=== PATIENT | male | born 1975 | race Caucasian/White ===

== ENCOUNTER 2019-07-07 16:15 | Outpatient (CLI) | payer BC, SELFPAY ==
--- NOTE | ~2019-07-07 | XR_ITS ---
EXAMINATION: XR lumbar spine 2-3V DATE: 07/07/2019 16:43 INDICATION: Low back pain and left-sided sciatic pain TECHNIQUE: Anteroposterior and lateral views of the lumbar spine, and cone-down lateral view of the l umbosacral junction were obtained. COMPARISON: None. FINDINGS: Mild straightening of the normal lumbar lordosis. No spondylolisthesis. Vertebral body and disc heigh ts are normal. No significant appreciable facet osteoarthritis. Visualized portions of the sacrum and bilateral sacroiliac joints are unremarkable. Visualized base of the lungs are clear with no pleural effusion. Moderate amount of colonic stool. IMPRESSION: 1. Straightening of the normal lumbar lordosis with no appreciable spondylosis. Reviewed, dictated and finalized at location A. S OR SURVEYS INTERVIEWER
--- NOTE | ~2019-07-07 | XR_ITS ---
EXAMINATION: XR hip LT min 2V DATE: 07/07/2019 16:42 INDICATION: Low back pain and left-sided sciatic pain. TECHNIQUE: Anteroposterior and frog-leg lateral views of the left hip were obtained. COMPARISON: None. FINDINGS: Alignment is normal. No fracture or suspected avascular necrosis. Left hip joint space appears relati vely preserved. Soft tissues are unremarkable. IMPRESSION: 1. Negative left hip radiographs. Reviewed, dictated and finalized at location A. 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
== END 2019-07-07 16:16 | disposition home or self-care (01) ==
LOC: CHSIMG 16:23
PROVIDERS: PCP Family Medicine; Visit Provider Family Medicine
DX: M54.32 Sciatica, left side (principal)
CPT/HCPCS: 72100; 73502

== ENCOUNTER 2023-02-15 19:07 | Emergency (ER) | payer OTHER, SELFPAY ==
[2023-02-15 19:10] VITALS: BP 180/110; PULSE 100; RESP 20; TEMP 36.6; O2SAT 95
--- NOTE | 2023-02-15 19:12 | ED.ANIMALBIT ---
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 was trying around up the dog for quarantine as it bit another person) Associated symptoms: none Related Data Patient tetanus UTD: Yes ( 3 years ago) Allergies Allergy/AdvReac Type Severity Reaction Status Date / Time No Known Allergies Allergy Verified 02/15/23 19:11 Review of Systems Review of Systems: All systems reviewed & are unremarkable except as noted in HPI and below Constitutional: Constitutional: Reports no additional constitutional complaints Eyes: Eyes: Reports no additional eye complaints ENT: Reports system reviewed and no additional complaints, except as documented Cardiovascular: Cardiovascular: Reports no additional cardiovascular complaints Respiratory: Respiratory: Reports no additional respiratory complaints Gastrointestinal: Gastrointestinal: Reports no additional gastrointestinal complaints Genitourinary: Genitourinary: Reports no additional male genitourinary complaints Musculoskeletal: Musculoskeletal: Reports no additional musculoskeletal complaints Integumentary/Breasts: Skin/Breast: Reports system reviewed and no additional complaints, except as docu Neurologic: Reports system reviewed and no additional complaints, except as documented Psychiatric: Psychiatric: Reports no additional psychiatric complaints Endocrine: Endocrine: Reports no additional endocrine complaints Hematologic/Lymphatic: Hematologic/Lymphatic: Reports no additional hematologic/lymphatic complaints Allergic/Immunologic: Allergic/Immunologic: Reports no additional allergic/immunologic complaints Exam Const: General: healthy appearing Nutritional Appearance: well nourished Orientation/consciousness: patient oriented x3 HENMT: Head: normal to inspection Ears: external ears normal Face/Nose/Sinus: Normal external nose present Eyes: Conjunctivae: conjunctivae normal Pupils: Equal, round and reactive pupils present EOM: EOMs intact bilaterally Neck: Neck: normal visual inspection Chest: Chest palpation & inspection: normal inspection of the chest Resp: Effort & Inspection: normal respiratory effort Auscultation: clear to auscultation bilaterally and no crackles Cardio: Rate: regular rate Rhythm: regular rhythm Heart sounds: no murmurs GI: Inspection: non-distended GI Palp: Yes Soft to palpation, No Tenderness to palpation present (GI) and No Guarding due to palpation present (GI) Auscultation: normal bowel sounds : General: Yes bladder normal to palpation Back/Spine/Pelvis: Back: no CVA tenderness Skin: General skin exam: normal color Rashes: no rashes Wounds: wound noted Other: right lower extremity below the knee has an abrasion with small puncture area from the dog bite Neuro: General: patient oriented x3, moves all extremities and no meningeal signs Cranial nerves: Yes Nystagmus not present Extrem: General: normal to inspection Psych: Mental Status: mental status grossly normal Affect: normal affect Attitude: cooperative Course Vital Signs Vital signs: Vital Signs Temperature 36.6 C 02/15/23 19:10 Pulse Rate 100 02/15/23 19:10 Respiratory Rate 20 02/15/23 19:10 Blood Pressure 180/110 H 02/15/23 19:10 Pulse Oximetry 95 02/15/23 19:10 Oxygen Delivery Room Air 02/15/23 19:10
[2023-02-15] MEDS: AMOXICILLIN/CLAVULANATE K 875-125 MG TAB 1 TABLET PO (19:38)
[2023-02-15 19:42] VITALS: BP 140/86; PULSE 89; RESP 18; O2SAT 99
--- NOTE | 2023-02-15 19:47 | PC.NURSE ---
Bite report completed and faxed to county.
== END 2023-02-15 19:50 | disposition home or self-care (01) ==
LOC: CHSED 19:43
PROVIDERS: Emergency Provider Emergency Medicine; PCP Family Medicine
DX: S81.051A Open bite, right knee, initial encounter (principal); S81.851A Open bite, right lower leg, initial encounter; W54.0XXA Bitten by dog, initial encounter
CPT/HCPCS: 99283; A9270